=== PATIENT | female | born 1960 | race Caucasian/White ===

== ENCOUNTER → 2018-11-15 | Outpatient (CLI) | payer MEDICAID ==
[2018-11-15 15:52] LABS: HEMOGLOBIN A1c 5.5 %
== END ==
LOC: M LAB 13:46
DX: Z13.228 Encounter for screening for other metabolic disorders (principal)

== ENCOUNTER 2019-01-13 08:59 | Day surgery (SDC) | payer MEDICARE, MEDICAID ==
[~2019-01-13] VITALS: Ht 152.4 cm; Wt 108.0 kg
[~2019-01-13 08:59] MED LIST: ALEN70TA74; ARIP1TAB4; ATOR80TA59; CLOP75TA2; DULO1CAP3; HYDR50TA70; LAMO200T54; LEVO50TA5; LISI-542; VITA-112
[2019-01-13] MEDS ORDERED: NS 1,000 ML IV SCH (09:15)
[2019-01-13] MEDS ORDERED: PROPOFOL 200 MG/20 ML VIAL As Ordered ONE ×2 (09:41→09:45)
[2019-01-13] MEDS ORDERED: LIDOCAINE 2% INJ 100 MG/5 ML SDV (FOR ANES.) As Ordered ONE (09:42)
--- NOTE | 2019-01-13 10:07 | ROOR ---
Patient Name: Sultana Elias Procedure Date: 01/13/2019 9:26 AM Date of : 1960 Age: 58 Room: [facility] Gender: Female Note Status: Finalized Procedure: Colonoscopy Indications: Screening for colorectal malignant neoplasm Providers: Marlon Hall MD Referring MD: Edmundo GLASER MD Requesting Provider: Medicines: Monitored Anesthesia Care Complications: No immediate complications. Procedure: Pre-Anesthesia Assessment: - Prior to the procedure, a History and Physical was performed, and patient medications and allergies were reviewed. The patient is competent. The risks and benefits of the procedure and the sedation options and risks were discussed with the patient. All questions were answered and informed consent was obtained. Patient identification and proposed procedure were verified by the physician, the nurse and the anesthesiologist in the procedure room. Mental Status Examination: alert and oriented. Airway Examination: normal oropharyngeal airway and neck mobility. Respiratory Examination: clear to auscultation. CV Examination: normal. Prophylactic Antibiotics: The patient does not require prophylactic antibiotics. Prior Anticoagulants: The patient has taken Plavix (clopidogrel), last dose was 7 days prior to procedure. ASA Grade Assessment: III - A patient with severe systemic disease. After reviewing the risks and benefits, the patient was deemed in satisfactory condition to undergo the procedure. The anesthesia plan was to use monitored anesthesia care (MAC). Immediately prior to administration of medications, the patient was re-assessed for adequacy to receive sedatives. The heart rate, respiratory rate, oxygen saturations, blood pressure, adequacy of pulmonary ventilation, and response to care were monitored throughout the procedure. The physical status of the patient was re-assessed after the procedure. The Colonoscope was introduced through the anus and advanced to the terminal ileum, with identification of the appendiceal orifice and IC valve. The colonoscopy was performed without difficulty. The patient tolerated the procedure well. The quality of the bowel preparation was good and adequate to identify polyps 6 mm and larger in size. The terminal ileum, ileocecal valve, appendiceal orifice, and rectum were photographed. Scope insertion time was 3 minutes. Scope withdrawal time was 9 minutes. The total duration of the procedure was 12 minutes. Findings: The perianal and digital rectal examinations were normal. The terminal ileum appeared normal. A 4 mm polyp was found in the cecum. The polyp was sessile. The polyp was removed with a jumbo cold forceps. Resection and retrieval were complete. Verification of patient identification for the specimen was done by the physician and nurse using the patient's name, date and medical record number. Estimated blood loss was minimal. Three sessile polyps were found in the recto-sigmoid colon. The polyps were 3 to 5 mm in size. These polyps were removed with a jumbo cold forceps. Resection and retrieval were complete. Non-bleeding external and internal hemorrhoids were found during retroflexion. The hemorrhoids were medium-sized. Impression: - The examined portion of the ileum was normal. - One 4 mm polyp in the cecum, removed with a jumbo cold forceps. Resected and retrieved. - Three 3 to 5 mm polyps at the recto-sigmoid colon, removed with a jumbo cold forceps. Resected and retrieved. - Non-bleeding external and internal hemorrhoids. Recommendation: - Patient has a contact number available for emergencies. The signs and symptoms of potential delayed complications were discussed with the patient. Return to normal activities tomorrow. Written discharge instructions were provided to the patient. - High fiber diet. - Continue present medications. - Resume Plavix (clopidogrel) at prior dose tomorrow. Refer to primary physician for further adjustment of therapy. - Await pathology results. - Repeat colonoscopy in 3 - 5 years for surveillance based on pathology results. - Based on the biopsy results you will receive a phone call from GI clinic in 2-3 weeks to review the pathology results AND/OR your results will be faxed to your Primary care physician. - Return to primary care physician. Marlon Hall MD Marlon Hall MD 01/13/2019 10:07:29 AM Electronically signed by Marlon Hall MD Number of Addenda: 0 Note Initiated On: 01/13/2019 9:26 AM Estimated Blood Loss: Estimated blood loss was minimal.
[2019-01-13 10:20] VITALS: BP 147/83
== END 2019-01-13 10:33 | disposition home or self-care (01) ==
LOC: M OPP 08:59
PROVIDERS: ATTEND Internal Medicine Gastroenterology
DX: Z12.11 Encounter for screening for malignant neoplasm of colon (principal); K64.8 Other hemorrhoids; D12.0 Benign neoplasm of cecum; K63.5 Polyp of colon; Z87.891 Personal history of nicotine dependence; Z86.73 Personal history of transient ischemic attack (TIA), and cerebral infarction without residual deficits; Z86.69 Personal history of other diseases of the nervous system and sense organs; Z88.0 Allergy status to penicillin; Z88.2 Allergy status to sulfonamides

== ENCOUNTER → 2024-03-17 | Outpatient (CLI) | payer MEDICARE, MEDICAID ==
[~2024-03-17] MED LIST changes: +ACET1TAB55 PO; -ALEN70TA74; +ALEN70TA82 PO; +ATOR40TA75 PO; +BUSP10TA PO; -CLOP75TA2; +CLOP75TA2 PO; +DULO-34 PO; -DULO1CAP3; +DULO1CAP6; +E-Z-GAS II EFFERVESCENT PACKET (SODIUM BICARB./CITRIC ACID/SIMETHICONE) As Ordered ONE; +E-Z-HD 98% w/w 340GM SUSP BTL As Ordered ONE; +E-Z-PAQUE 96% w/w SUSP 176GM BTL As Ordered ONE; +INVE1.31 IM; -LAMO200T54; +LAMO200T54 PO; +LASI40TA9 PO; -LEVO50TA5; +LEVO50TA5 PO; -LISI-542; +LISI5TAB11; +METO1TAB32 PO; +OXYB5TAB14 PO; +OXYC-517 PO; +TRAZ-186 PO; +TREL1AER IN; +VENTAER INH
== END ==
LOC: M RAD 07:36
PROVIDERS: ATTEND Physician Assistant Medical
DX: R13.10 Dysphagia, unspecified (principal)

== ENCOUNTER → 2024-03-23 | Day surgery (SDC) | payer MEDICARE, MEDICAID ==
[~2024-03-23] VITALS: Ht 152.4 cm; Wt 131.5 kg
[~2024-03-23] MED LIST changes: -E-Z-GAS II EFFERVESCENT PACKET (SODIUM BICARB./CITRIC ACID/SIMETHICONE) As Ordered ONE; -E-Z-HD 98% w/w 340GM SUSP BTL As Ordered ONE; -E-Z-PAQUE 96% w/w SUSP 176GM BTL As Ordered ONE; +NS 1,000 ML IV ONE
== END | disposition home or self-care (01) ==
LOC: M OPP 09:53
PROVIDERS: ATTEND Internal Medicine Gastroenterology
DX: Z86.010 Personal history of colon polyps (principal); R13.10 Dysphagia, unspecified; Z53.8 Procedure and treatment not carried out for other reasons